=== PATIENT | male | born 1945 | race Caucasian/White ===

== ENCOUNTER 2022-05-13 09:06 | Inpatient (IN) ==
[2022-05-13 09:39] LABS: iSTAT Creatinine 1.6 mg/dl (0.6-1.3); iSTAT Hemoglobin 9.2 g/dl (14.0-18.0); iSTAT Ionized Calcium 1.19 mmol/l (1.12-1.32)
[2022-05-13] MEDS ORDERED: SODIUM CHLORIDE 0.9% 500 ML IV SCH (10:00)
[2022-05-13] MEDS ORDERED: SODIUM CHLORIDE 0.9% 1000ML 1,000 ML IV SCH (10:00)
--- NOTE | 2022-05-13 10:04 | Emergency Department Note ---
Impression & Plan Acute hypotension, Dizziness, Acute confusion, Acute diverticulitis of intestine ED Provider Note INFORMANT: Patient and EMS ED PROVIDER(S): Kareem Montemayor MD CHIEF COMPLAINT: dizziness PLAN: Disposition: Admitted Condition: Good Outpatient prescription management: none Referral: None MEDICAL DECISION MAKING: Patient presented because of dizziness. He was hypotensive in the outpatient setting. He responded well to fluids. He did have some confusion. A CT scan of the head as well as the abdomen pelvis was ordered that he had tenderness on the physical examination in the lower quadrant. Patient had a negative head CT. His ECG showed a stable bradycardia. His CBC and chemistry panel were unremarkable except for mild anemia. Patient had a negative lactate and troponin. COVID testing negative. CT of the abdomen pelvis does reveal diverticulitis. Because of this the patient had blood cultures obtained. He was reassessed. The patient was given IV Unasyn. His hypotension had resolved. Given the low blood pressure and findings on physical and CT imaging I discus sed further treatment in the hospital. Patient was in agreement. Consultation was made with the [facility] service. Patient was evaluated in the ER and admitted for further management. Triage Nursing notes reviewed and agree them. Vital Signs: reviewed and remarkable for no significant abnormalities Differential diagnosis: Infection, dehydration, metabolic abnormality, hypo/hyperglycemia, electrolyte disturbance, anemia, hypoxia, cardiac sources, intracerebral event, toxicologic, neurologic, as well as other pathologies. Diagnostics interpreted by me: ECG: Twelve-lead ECG reveals sinus bradycardia with first-degree AV block at [address] elevation or depression. There are Q waves present. No PACs or PVCs. Normal QRS duration. Cardiac Monitoring: Cardiac monitoring ordered by me: The patient was placed on continuous cardiac monitoring and observed. It revealed a n sinus bradycardic rhythm at 54 beats per minute without ectopy or evidence of dysrhythmia. Imaging studies: Chest x-ray. Findings: A chest x-ray was performed and revealed no pneumothorax, effusion, infiltrate, pulmonary edema, free air under the diaphragm, or wide mediastinum. Impression: No acute disease. Head CT and CT scan of the abdomen pelvis as above. HPI: The patient is a 77year old man who presents to the Emergency Room with complaints of dizziness. This started abruptly at a preop visit for colonoscopy at the [facility] and is improved. Patient states that he was feeling well. Reports were that he became dizzy and had confusion. His blood pressure was noted to be 66/42. BSG was 127. EMS was summoned. Patient did receive IV fluids. The patient also notes the following associated symptoms, difficulty sleeping last night.. The patient has taken no medication for relieving factors. Current pain is rated as 0/10. Pt denies LOC, headache, fevers, chills, diaphoresis, visual changes, neck pain, chest pain, breathing difficulties, nausea, vomiting, abdominal pain, back pain, melena, hematochezia, urinary symptoms, numbness, focal weakness, lymphadenopathy, rash, or other complaints. ROS: See above HPI for pertinent positives & negatives. A total of 10 systems reviewed and were otherwise negative. PAST MEDICAL HISTORY:See Below , diabetes, hypertension PAST SURGICAL HISTORY:See Below, FAMILY HISTORY:See Below SOCIAL HISTORY:See Below, retired HOME MEDICATIONS:See Below ALLERGIES:See Below VITALS:See Below PHYSICAL EXAMINATION: GENERAL: Awake, alert, tired-appearing, in no distress HENT: Normocephalic, atraumatic. Oropharynx unremarkable. EYES: Pale conjunctiva. Sclera non-icteric. NECK: Inspection normal. Non-tender. Supple. No nuchal rigidity. FROM. No masses. RESPIRATORY: Clear to auscultation. No wheezes. No rales. Normal respiratory effort. CARDIAC: Normal rate. Normal rhythm. No murmurs. No rubs. Extremities warm and well perfused. Pulses equal. No JVD. GI: Soft, non-distended. No tenderness to palpation. No rebound or guarding. No masses. RECTAL: Deferred. MUSCULOSKELETAL: Atraumatic. Chest examination reveals no tenderness. The back is symmetrical on inspection without obvious abnormality. There is no CVA tenderness to palpation. No joint edema. LOWER EXTREMITIES: Calves are equal size bilaterally and non-tender. No edema. No discoloration. NEURO: Speech is soft. Patient answers questions appropriately. Normal sensorium. No sensory or motor deficits noted. SKIN: No rash or jaundice noted. Kareem Montemayor MD Past Med/Surg History Medical History (Updated 05/13/22 @ 13:56 by Suki Lopez PA-C) Arthritis NECK, LIMITED ROM SIDE TO SIDE MOVEMENT CKD (chronic kidney disease), stage III Dementia Diabetes mellitus, type II, insulin dependent HLD (hyperlipidemia) HTN (hypertension) Poor historian Surgical History History of colonoscopy History of colonoscopy with polypectomy History of right cataract surgery History of surgery L HEEL , SPLINTER REMOVED Family History Other Heart disease Social History Smoking Status: Never smoker Second Hand Exposure: No; Hx Alcohol Use: Yes Hx Substance Use: No Preferred Language: Pashto Communication Ability: Effective Rubber Engraver Required: No Beliefs That Will Affect Care: None Current Living Situation: Alone Other Information That Helps Us Care for You: No Feels Safe at Home: Yes Safety Concerns: Feels Safe At This Time Assistive Devices: Glasses Allergies Allergies Allergy/AdvReac Type Severity Reaction Status Date / Time No Known Drug Allergies Allergy Unknown Verified 01/07/20 14:34 Home Meds Home Medications Medication Instructions Recorded Confirmed aspirin 81 mg tablet,delayed 81 mg PO QAM 10/16/19 05/13/22 release (Aspir-) atorvastatin 80 mg tablet 80 mg PO HS 10/16/19 05/13/22 losartan 100 mg tablet 100 mg PO QAM 10/16/19 05/13/22 omega 3 350 mg-dha 235 mg-epa 90 2 cap PO QAM 10/16/19 05/13/22 mg-fish oil 597 mg capsule,delay rel (Swiss-3) donepezil 5 mg tablet 10 mg PO QAM 01/07/20 05/13/22 gabapentin 300 mg capsule 600 mg PO TID 01/07/20 05/13/22 insulin aspart U-100 100 unit/mL 12 unit SUBCUT BIDM 01/07/20 05/13/22 subcutaneous solution (Novolog U-100 Insulin aspart) insulin glargine 100 unit/mL (3 25 unit SUBCUT BID 01/07/20 05/13/22 mL) subcutaneous pen (Lantus Solostar U-100 Insulin) albuterol 90 mcg/actuation aerosol 90 mcg INHALATION Q6H PRN 05/13/22 05/13/22 inhaler amitriptyline 50 mg tablet 100 mg PO HS PRN 05/13/22 05/13/22 amlodipine 5 mg tablet 5 mg PO DAILY 05/13/22 05/13/22 cholecalciferol (vitamin D3) 125 125 mcg PO DAILY 05/13/22 05/13/22 mcg (5,000 unit) capsule docusate sodium 100 mg capsule 100 mg PO BID PRN 05/13/22 05/13/22 folic acid 1 mg tablet 1 mg PO DAILY 05/13/22 05/13/22 Results & Data (ED) Vital Signs Vital Signs - 24 hr 05/13/22 09:13 05/13/22 09:15 05/13/22 09:18 Temperature 36.5 C Temperature Source Oral Pulse Rate - Lying Pulse Rate - Sitting Pulse Rate - Standing Pulse Rate 54 L 56 L 54 L Pulse Rate [Finger] Pulse Rate from SpO2 Sensor 54 L 54 L Respiratory Rate 16 16 20 Blood Pressure - Lying Blood Pressure - Sitting Blood Pressure- Standing Blood Pressure 104/64 104/64 Blood Pressure [Left Arm] Blood Pressure Mean 77 77 Blood Pressure Mean [Left Arm] Pulse Oximetry 97 96 93 Oxygen Delivery Method Room Air Sepsis Recent Fever Within 48 Hours No Sepsis New/Unexplained Change in Mental Status No Sepsis Action Taken by Nursing No Action Required 05/13/22 09:30 05/13/22 09:45 05/13/22 09:49 Temperature Temperature Source Pulse Rate - Lying Pulse Rate - Sitting Pulse Rate - Standing Pulse Rate 54 L 56 L 54 L Pulse Rate [Finger] Pulse Rate from SpO2 Sensor 54 L 56 L 53 L Respiratory Rate 10 L 16 14 Blood Pressure - Lying Blood Pressure - Sitting Blood Pressure- Standing Blood Pressure 115/63 106/68 Blood Pressure [Left Arm] Blood Pressure Mean 80 80 Blood Pressure Mean [Left Arm] Pulse Oximetry 95 97 98 Oxygen Delivery Method Room Air Sepsis Recent Fever Within 48 Hours Sepsis New/Unexplained Change in Mental Status Sepsis Action Taken by Nursing 05/13/22 09:59 05/13/22 10:00 05/13/22 10:10 Temperature Temperature Source Pulse Rate - Lying Pulse Rate - Sitting Pulse Rate - Standing Pulse Rate 57 L 73 Pulse Rate [Finger] Pulse Rate from SpO2 Sensor 57 L Respiratory Rate 4 L 18 Blood Pressure - Lying Blood Pressure - Sitting Blood Pressure- Standing Blood Pressure 129/72 Blood Pressure [Left Arm] Blood Pressure Mean 91 Blood Pressure Mean [Left Arm] Pulse Oximetry 99 Oxygen Delivery Method Sepsis Recent Fever Within 48 Hours Sepsis New/Unexplained Change in Mental Status Sepsis Action Taken by Nursing 05/13/22 10:15 05/13/22 10:20 05/13/22 10:22 Temperature Temperature Source Pulse Rate - Lying 54 L Pulse Rate - Sitting 61 Pulse Rate - Standing 64 Pulse Rate 58 L 58 L 64 Pulse Rate [Finger] Pulse Rate from SpO2 Sensor 57 L 64 Respiratory Rate 18 0 L 18 Blood Pressure - Lying 116/67 Blood Pressure - Sitting 112/63 Blood Pressure- Standing 117/68 Blood Pressure 116/67 117/68 Blood Pressure [Left Arm] Blood Pressure Mean 83 84 Blood Pressure Mean [Left Arm] Pulse Oximetry 95 99 Oxygen Delivery Method Sepsis Recent Fever Within 48 Hours Sepsis New/Unexplained Change in Mental Status Sepsis Action Taken by Nursing 05/13/22 10:23 05/13/22 10:41 05/13/22 10:45 Temperature Temperature Source Pulse Rate - Lying Pulse Rate - Sitting Pulse Rate - Standing Pulse Rate Pulse Rate [Finger] 60 Pulse Rate from SpO2 Sensor 56 L 59 L Respiratory Rate 16 Blood Pressure - Lying Blood Pressure - Sitting Blood Pressure- Standing Blood Pressure Blood Pressure [Left Arm] 117/68 Blood Pressure Mean Blood Pressure Mean [Left Arm] 84 Pulse Oximetry 97 95 96 Oxygen Delivery Method Room Air Sepsis Recent Fever Within 48 Hours Sepsis New/Unexplained Change in Mental Status Sepsis Action Taken by Nursing 05/13/22 11:00 05/13/22 11:15 05/13/22 11:20 Temperature Temperature Source Pulse Rate - Lying Pulse Rate - Sitting Pulse Rate - Standing Pulse Rate 0 L 59 L 63 Pulse Rate [Finger] Pulse Rate from SpO2 Sensor 56 L 59 L 62 Respiratory Rate 10 L 13 Blood Pressure - Lying Blood Pressure - Sitting Blood Pressure- Standing Blood Pressure 128/82 Blood Pressure [Left Arm] Blood Pressure Mean 97 Blood Pressure Mean [Left Arm] Pulse Oximetry 97 99 98 Oxygen Delivery Method Sepsis Recent Fever Within 48 Hours Sepsis New/Unexplained Change in Mental Status Sepsis Action Taken by Nursing 05/13/22 11:30 05/13/22 11:40 05/13/22 11:56 Temperature Temperature Source Pulse Rate - Lying Pulse Rate - Sitting Pulse Rate - Standing Pulse Rate 59 L 58 L Pulse Rate [Finger] Pulse Rate from SpO2 Sensor 58 L 59 L 62 Respiratory Rate 11 L 10 L Blood Pressure - Lying Blood Pressure - Sitting Blood Pressure- Standing Blood Pressure 151/83 H Blood Pressure [Left Arm] Blood Pressure Mean 105 Blood Pressure Mean [Left Arm] Pulse Oximetry 94 97 97 Oxygen Delivery Method Sepsis Recent Fever Within 48 Hours Sepsis New/Unexplained Change in Mental Status Sepsis Action Taken by Nursing 05/13/22 12:03 05/13/22 12:10 05/13/22 12:15 Temperature Temperature Source Pulse Rate - Lying Pulse Rate - Sitting Pulse Rate - Standing Pulse Rate 63 69 Pulse Rate [Finger] Pulse Rate from SpO2 Sensor 64 68 Respiratory Rate 13 14 Blood Pressure - Lying Blood Pressure - Sitting Blood Pressure- Standing Blood Pressure Blood Pressure [Left Arm] Blood Pressure Mean Blood Pressure Mean [Left Arm] Pulse Oximetry 99 89 L Oxygen Delivery Method Sepsis Recent Fever Within 48 Hours Sepsis New/Unexplained Change in Mental Status Sepsis Action Taken by Nursing 05/13/22 12:30 Temperature Temperature Source Pulse Rate - Lying Pulse Rate - Sitting Pulse Rate - Standing Pulse Rate 66 Pulse Rate [Finger] Pulse Rate from SpO2 Sensor 65 Respiratory Rate 15 Blood Pressure - Lying Blood Pressure - Sitting Blood Pressure- Standing Blood Pressure 139/88 Blood Pressure [Left Arm] Blood Pressure Mean 105 Blood Pressure Mean [Left Arm] Pulse Oximetry 94 Oxygen Delivery Method Sepsis Recent Fever Within 48 Hours Sepsis New/Unexplained Change in Mental Status Sepsis Action Taken by Nursing Laboratory Data Result diagrams: 05/13/22 09:18 05/13/22 09:18 Lab Results 05/13/22 05/13/22 05/13/22 Range/Units 09:18 09:18 09:18 WBC 6.28 (4.8-10.8) K/uL RBC 3.10 L (4.7-6.1) M/uL Hgb 10.0 L (14.0-18.0) g/dL POC Hgb (14.0-18.0) g/dl Hct 30.5 L (42-52) % POC Hct (42-52) % MCV 98.4 (80-100) fL MCH 32.3 (25-34) pg MCHC 32.8 (32-36) g/dL RDW Std Deviation 48.8 H (36.4-46.3) fL RDW Coeff of Gabriella 13.6 (11.5-14.5) % Plt Count 337 (130-400) K/uL MPV 10.0 (7.4-10.4) fL Immature Gran % (Auto) 0.2 % Neut % (Auto) 53.7 % Lymph % (Auto) 32.8 % [place] % (Auto) 8.4 % Eos % (Auto) 3.8 % Baso % (Auto) 1.1 % Neut # (Auto) 3.37 (1.4-6.5) K/uL Lymph # (Auto) 2.06 (1.2-3.4) K/uL [place] # (Auto) 0.53 (0.11-0.59) K/uL Eos # (Auto) 0.24 (0-0.5) K/uL Baso # (Auto) 0.07 (0-0.2) K/uL Immature Gran # (Auto) 0.01 (0.00-0.02) K/uL POC Sodium (135-144) mmol/L Sodium 140 (136-145) mmol/L POC Potassium (3.3-5.0) mmol/L Potassium 4.0 (3.5-5.1) mmol/L POC Chloride (101-112) mmol/L Chloride 108 H (98-107) mmol/L Carbon Dioxide 27 (21-32) mmol/L POC Total CO2 (24-31) mmol/L Anion Gap 5 (3-11) POC Anion Gap (16-25) mmol/L POC BUN (7-18) mg/dl BUN 26 H (6-23) mg/dl Creatinine 1.57 H (0.6-1.4) mg/dl POC Creatinine (0.6-1.3) mg/dl Est Cr Clr Drug Dosing 43.9 ml/min Est GFR ( Amer) 48.9 ml/min Est GFR (Non-Af Amer) 42.2 ml/min BUN/Creatinine Ratio 16.6 (10-20) Glucose 114 H (70-99(Fasting)) mg/dl POC Glucose (other) (70-99) mg/dl Lactate (0.4-2.0) mmol/L Calcium 8.6 (8.5-10.1) mg/dl POC Ioniz Calcium Jessica (1.12-1.32) mmol/l Magnesium 1.7 (1.7-2.4) mg/dl Total Bilirubin 1.0 (0.2-1.0) mg/dl AST 11 L (13-39) U/L ALT 16 (7-52) U/L Alkaline Phosphatase 92 (34-104) U/L Troponin I High Sens 4.5 (0-20) pg/ml Total Protein 6.0 (6.0-8.3) gm/dl Albumin 3.5 (3.4-5.0) gm/dl Globulin 2.5 (2.5-4.0) gm/dl Albumin/Globulin Ratio 1.4 (0.9-2) TSH 5.352 H (0.300-4.500) uIu/ml Free T4 0.74 (0.61-1.60) ng/dl SARS-CoV-2, RNA, NAAT (NEGATIVE) 05/13/22 05/13/22 05/13/22 Range/Units 09:26 11:49 11:49 WBC (4.8-10.8) K/uL RBC (4.7-6.1) M/uL Hgb (14.0-18.0) g/dL POC Hgb 9.2 L (14.0-18.0) g/dl Hct (42-52) % POC Hct 27 L (42-52) % MCV (80-100) fL MCH (25-34) pg MCHC (32-36) g/dL RDW Std Deviation (36.4-46.3) fL RDW Coeff of Gabriella (11.5-14.5) % Plt Count (130-400) K/uL MPV (7.4-10.4) fL Immature Gran % (Auto) % Neut % (Auto) % Lymph % (Auto) % [place] % (Auto) % Eos % (Auto) % Baso % (Auto) % Neut # (Auto) (1.4-6.5) K/uL Lymph # (Auto) (1.2-3.4) K/uL [place] # (Auto) (0.11-0.59) K/uL Eos # (Auto) (0-0.5) K/uL Baso # (Auto) (0-0.2) K/uL Immature Gran # (Auto) (0.00-0.02) K/uL POC Sodium 142 (135-144) mmol/L Sodium (136-145) mmol/L POC Potassium 4.0 (3.3-5.0) mmol/L Potassium (3.5-5.1) mmol/L POC Chloride 105 (101-112) mmol/L Chloride (98-107) mmol/L Carbon Dioxide (21-32) mmol/L POC Total CO2 25 (24-31) mmol/L Anion Gap (3-11) POC Anion Gap 17.0 (16-25) mmol/L POC BUN 24 H (7-18) mg/dl BUN (6-23) mg/dl Creatinine (0.6-1.4) mg/dl POC Creatinine 1.6 H (0.6-1.3) mg/dl Est Cr Clr Drug Dosing ml/min Est GFR ( Amer) ml/min Est GFR (Non-Af Amer) ml/min BUN/Creatinine Ratio (10-20) Glucose (70-99(Fasting)) mg/dl POC Glucose (other) 114 H (70-99) mg/dl Lactate 1.4 (0.4-2.0) mmol/L Calcium (8.5-10.1) mg/dl POC Ioniz Calcium Jessica 1.19 (1.12-1.32) mmol/l Magnesium (1.7-2.4) mg/dl Total Bilirubin (0.2-1.0) mg/dl AST (13-39) U/L ALT (7-52) U/L Alkaline Phosphatase (34-104) U/L Troponin I High Sens (0-20) pg/ml Total Protein (6.0-8.3) gm/dl Albumin (3.4-5.0) gm/dl Globulin (2.5-4.0) gm/dl Albumin/Globulin Ratio (0.9-2) TSH (0.300-4.500) uIu/ml Free T4 (0.61-1.60) ng/dl SARS-CoV-2, RNA, NAAT NEGATIVE (NEGATIVE) Administered Medications Sodium Chloride (Nss 1000ml) 1,000 mls @ 125 mls/hr IV .Q8H NATE Stop: 05/13/22 17:59 Last Admin: 05/13/22 11:09 Dose: 125 mls/hr Documented by: [id number] Discontinued Medications Sodium Chloride (Nss) 500 mls @ 999 mls/hr IV .Q31M NATE Stop: 05/13/22 10:30 Last Infusion: 05/13/22 11:09 Dose: 0 mls/hr Documented by: [id number] Admin: 05/13/22 10:25 Dose: 999 mls/hr Documented by: [id number] Ampicillin Sodium/Sulbactam Sodium 3,000 mg/ Sodium Chloride 108 mls @ 200 mls/hr IV NOW STA; Protocol Stop: 05/13/22 12:10 Last Admin: 05/13/22 12:32 Dose: 200 mls/hr Documented by: [id number] Imaging Data Radiologist's Impression: Chest X-Ray 05/13/22 09:53 XR chest 1V portable CLINICAL HISTORY: weakness TECHNIQUE: Single frontal radiograph of the chest was obtained. Comparison: Comparison is made to chest radiograph 12/18/2019 FINDINGS: No lines and tubes are seen. Cardiomegaly is noted. The lungs are clear. No evidence of pleural effusion or pneumothorax. IMPRESSION: Stable cardiomegaly without acute abnormality. ACT 112: Negative or not required by law. Electronically signed by: Dillon Fonseca M.D. 05/13/2022 10:[address] 05/13/22 09:53 CT SCAN OF THE BRAIN WITHOUT IV CONTRAST CLINICAL HISTORY: Dizziness. COMPARISON STUDY: No priors. TECHNIQUE: Unenhanced axial CT scan of the brain is performed from the vertex to the skull base. A dose lowering technique was utilized adhering to the principles of ALARA. CT DOSE: 614.27 mGy.cm FINDINGS: Brain parenchyma: There is age-related involutional change noting minimal subcortical and periventricular microangiopathic disease. There is no hemorrhag e, mass effect, or evidence of acute territorial ischemia by CT criteria. A chronic lacunar infarct is noted in the right thalamus. Martinez-white matter differentiation is preserved. No extra-axial fluid collection is seen. Ventricles, sulci, cisterns: Prominent secondary to involutional change. Intracranial vasculature: There is atherosclerotic calcification of the cavernous carotid and vertebral arteries. Calvarium: Unremarkable. Sinuses and mastoids: The visualized paranasal sinuses are clear. There is trace left mastoid effusion. The right mastoid air cells are well pneumatized. Orbits: The bony orbits are grossly intact. There are bilateral ocular lens implants. IMPRESSION: There is no hemorrhage, mass effect, or evidence of acute territorial ischemia by CT criteria. ACT 112: Negative or not required by law. Electronically signed by: Chano Klein M.D. 05/13/2022 10:32 AM Abdomen/Pelvis CT 05/13/22 10:09 CT abd pelvis wo con CLINICAL HISTORY: LLQ abd pain, hypotension TECHNIQUE: Helical axial images of the abdomen and pelvis were obtained. Automated dose lowering techniques and/or adjustment according to patient size were utilized for this exam. This exam was performed without intravenous contrast. CT DOSE: 459.78 mGy.cm COMPARISON: None available at the time of this dictation. FINDINGS: Lower chest: No acute abnormality Liver: Unremarkable. No focal lesions are seen. Gallbladder and biliary tree: Cholelithiasis is seen without evidence of cholecystitis. No intra- or extrahepatic biliary ductal dilation. Pancreas: Unremarkable, no focal lesions. Spleen: Unremarkable. Adrenals: Unremarkable. Kidneys and ureters: Perinephric stranding is noted bilaterally. Bladder: Unremarkable. Reproductive organs: Unremarkable. Bowel: Since of diverticula are seen. There is bowel wall thickening and vascular prominence in the sigmoid colon with a tiny amount of surrounding fat stranding. No perforation or abscess is seen. Lymph nodes Retroperitoneal: Unremarkable. Mesenteric: Unremarkable. Pelvic: Unremarkable. Peritoneum: Minimal fat stranding is seen about the sigmoid colon. Vessels: Atherosclerotic calcifications are seen. Abdominal wall: Bilateral fat-containing inguinal hernias are seen. Bones: Degenerative changes in the visualized spine. IMPRESSION: Findings are compatible with acute diverticulitis without evidence of perforation or abscess. ACT 112: Negative or not required by law. Electronically signed by: Dillon Fonseca M.D. 05/13/2022 11:08 AM Discharge Plan Visit Data Chief Complaint: Dizziness Stated Complaint: Dizziness ED Provider: Kareem Montemayor Discharge Problem: Acute hypotension, Dizziness, Acute confusion, Acute diverticulitis of intestine Patient Disposition: Admitted As Inpatient Discharge Instructions Interventions: ED Discharge Assessment Last Done: 05/13/22 13:36
--- NOTE | 2022-05-13 10:29 | Electrocardiogram Report ---
Test Reason : Blood Pressure : / mmHG Vent. Rate : 052 BPM Atrial Rate : 052 BPM P-R Int : 240 ms QRS Dur : 102 ms QT Int : 438 ms P-R-T Axes : 047 039 048 degrees QTc Int : 407 ms Sinus bradycardia with 1st degree A-V block Possible Old Inferior infarct When compared with ECG of 07-JAN-2020 12:47, Nonspecific T wave abnormality Lateral leads no longer present Confirmed by Julian Mark ([id number]) on 05/13/2022 10:29:30 AM Referred By: Confirmed By:Julian Mark
--- NOTE | 2022-05-13 10:34 | CT Scan Report ---
CT SCAN OF THE BRAIN WITHOUT IV CONTRAST CLINICAL HISTORY: Dizziness. COMPARISON STUDY: No priors. TECHNIQUE: Unenhanced axial CT scan of the brain is performed from the vertex to the skull base. A do se lowering technique was utilized adhering to the principles of ALARA. CT DOSE: 614.27 mGy.cm FINDINGS: Brain parenchyma: There is age-related involutional change noting minimal subcortical and periventric ular microangiopathic disease. There is no hemorrhage, mass effect, or evidence of acute territorial ischemia by CT criteria. A chronic lacunar infarct is noted in the right thalamus. Martinez-white matter differentiation is preserved. No extra-axial fluid collection is seen. Ventricles, sulci, cisterns: Prominent secondary to involutional change. Intracranial vasculature: There is atherosclerotic calcification of the cavernous carotid and vertebr al arteries. Calvarium: Unremarkable. Sinuses and mastoids: The visualized paranasal sinuses are clear. There is trace left mastoid effusio n. The right mastoid air cells are well pneumatized. Orbits: The bony orbits are grossly intact. There are bilateral ocular lens implants. IMPRESSION: There is no hemorrhage, mass effect, or evidence of acute territorial ischemia by CT aruna payne. ACT 112: Negative or not required by law. Electronically signed by: Chano Klein M.D. 05/13/2022 10:32 AM
--- NOTE | 2022-05-13 10:43 | XRay Report ---
XR chest 1V portable CLINICAL HISTORY: weakness TECHNIQUE: Single frontal radiograph of the chest was obtained. Comparison: Comparison is made to chest radiograph 12/18/2019 FINDINGS: No lines and tubes are seen. Cardiomegaly is noted. The lungs are clear. No evidence of pleural effus ion or pneumothorax. IMPRESSION: Stable cardiomegaly without acute abnormality. ACT 112: Negative or not required by law. Electronically signed by: Dillon Fonseca M.D. 05/13/2022 10:42 AM
[2022-05-13 10:44] LABS: Basophils # (auto) 0.07 K/uL (0-0.2); Basophils % (auto) 1.1 %; Eosinophils # (auto) 0.24 K/uL (0-0.5); Eosinophils % (auto) 3.8 %; Hematocrit (blood only) 30.5 % (42-52); Immature Granulocytes # (auto) 0.01 K/uL (0.00-0.02); Immature Granulocytes % (auto) 0.2 %; Lymphocytes # (auto) 2.06 K/uL (1.2-3.4); Lymphocytes % (auto) 32.8 %; Mean Corpuscular Hemoglobin 32.3 pg (25-34); Mean Corpuscular Hgb Conc 32.8 g/dL (32-36); Mean Corpuscular Volume 98.4 fL (80-100); Monocytes # (auto) 0.53 K/uL (0.11-0.59); Monocytes % (auto) 8.4 %; Neutrophils # (auto) 3.37 K/uL (1.4-6.5); Neutrophils % (auto) 53.7 %; Platelet Count 337 K/uL (130-400); RDW Coefficient of Variation 13.6 % (11.5-14.5); RDW Standard Deviation 48.8 fL (36.4-46.3); White Blood Count 6.28 K/uL (4.8-10.8)
[2022-05-13 10:52] LABS: Troponin I High Sensitivity 4.5 pg/ml (0-20)
[2022-05-13 10:55] LABS: Albumin Globulin Ratio 1.4 (0.9-2); Albumin Level 3.5 gm/dl (3.4-5.0); BUN Creatinine Ratio 16.6 (10-20); Calcium 8.6 mg/dl (8.5-10.1); Creatinine Clr Calc Pharmacy 43.9 ml/min; Est GFR (African American) 48.9 ml/min; Est GFR (Non-African American) 42.2 ml/min; Globulin 2.5 gm/dl (2.5-4.0); Magnesium 1.7 mg/dl (1.7-2.4)
[2022-05-13 11:00] LABS: Thyroid Stimulating Hormone 5.352 uIu/ml (0.300-4.500)
--- NOTE | 2022-05-13 11:09 | CT Scan Report ---
CT abd pelvis wo con CLINICAL HISTORY: LLQ abd pain, hypotension TECHNIQUE: Helical axial images of the abdomen and pelvis were obtained. Automated dose lowering tech niques and/or adjustment according to patient size were utilized for this exam. This exam was perfor med without intravenous contrast. CT DOSE: 459.78 mGy.cm COMPARISON: None available at the time of this dictation. FINDINGS: Lower chest: No acute abnormality Liver: Unremarkable. No focal lesions are seen. Gallbladder and biliary tree: Cholelithiasis is seen without evidence of cholecystitis. No intra- or extrahepatic biliary ductal dilation. Pancreas: Unremarkable, no focal lesions. Spleen: Unremarkable. Adrenals: Unremarkable. Kidneys and ureters: Perinephric stranding is noted bilaterally. Bladder: Unremarkable. Reproductive organs: Unremarkable. Bowel: Since of diverticula are seen. There is bowel wall thickening and vascular prominence in the s igmoid colon with a tiny amount of surrounding fat stranding. No perforation or abscess is seen. Lymph nodes Retroperitoneal: Unremarkable. Mesenteric: Unremarkable. Pelvic: Unremarkable. Peritoneum: Minimal fat stranding is seen about the sigmoid colon. Vessels: Atherosclerotic calcifications are seen. Abdominal wall: Bilateral fat-containing inguinal hernias are seen. Bones: Degenerative changes in the visualized spine. IMPRESSION: Findings are compatible with acute diverticulitis without evidence of perforation or abscess. ACT 112: Negative or not required by law. Electronically signed by: Dillon Fonseca M.D. 05/13/2022 11:08 AM
[2022-05-13 11:37] LABS: T4 Free Thyroxine 0.74 ng/dl (0.61-1.60)
[2022-05-13] MEDS ORDERED: AMPICILLIN/SULBACTAM SOD 3,000 MG in 0.9 % SODIUM CHLORIDE 100 ML IV STA (11:38)
--- NOTE | 2022-05-13 12:20 | History & Physical Report ---
Date of Service May 13, 2022 Assessment & Plan (1) Acute hypotension: (2) Dizziness: Plan: This is a 77yo M with a PMH of DM II, HTN, HLD, CKD III, dementia and other medical problems listed below who presents with transient lightheadedness and lower abdominal pain and was found to have acute diverticulitis. [facility] and [facility] that have since resolved with IV fluids VSS, has mild dementia at baseline CT head WNL Concern for improper medication use; lives alone, has all belongings in car including meds while moving into new apartment. May benefit from services Monitor BP, fall precautions, PT/OT evaluation (3) Acute diverticulitis of intestine: Plan: Intermittent mild lower abdominal pain, denies bleeding. Hgb 10, WBC WNL, lactate WNL CT abd/pelvis with acute diverticulitis without evidence of perforation or abscess Liquid diet, cipro and flagyl, stool culture, routine GI consult (4) Diabetes mellitus, type II, insulin dependent: Plan: Most recent a1c unknown, will add to AM labs. Unclear on insulin dosing, recent BSG readings have been low per patient. Glycemic consult to optimize regimen, nurse educator. BSG AC HS (5) CKD (chronic kidney disease), stage III: Plan: Per outpatient labwork, baseline Cr ~1.7. Monitor with daily BMP (6) HTN (hypertension): Plan: Normotensive since arrival. Continue amlodipine, losartan (7) Dementia: Plan: A&O to person and place on admission. Continue donepezil. Case mgmt help appreciated since patient lives alone, is in process of moving apartments (8) HLD (hyperlipidemia): Plan: Continue statin DVT Ppx: SQ heparin Code status: FULL PCP: [place] [facility] Dispo: Admitted to med/surg Patient seen in collaboration with . Please see addendum. History of Present Illness Chief Complaint: Dizziness, hypotension, lower abdominal pain Primary Care Provider: NO PCP This is a 77yo M with a PMH of DM II, HTN, HLD, CKD III, dementia and other medical problems listed below who presents with transient lightheadedness and lower abdominal pain. Patient was [facility] [place] when he was noted to be lightheaded and more confused than baseline with a reported systolic blood pressure in the 60s. Was sent to ED for further evaluation, where he was noted to have improved BP of 104/64. Dizziness and confusion have improved since arrival and IV fluids. Does note intermittent lower abdominal pain that is mild in nature and described as cramping. Did have some loose stool with colonoscopy prep, per patient although he is a poor historian. No longer constipated. Denies any fever, chills, headache, chest pain, shortness of breath, nausea, vomiting, dysuria, blood in stool. No focal weakness. Patient lives alone and is in the process of moving from 1 apartment to another. Currently has most of belongings including [employer] and car. Has mild dementia but is currently alert and oriented to person and place. Allergies Allergy/AdvReac Type Severity Reaction Status Date / Time No Known Drug Allergies Allergy Unknown Verified 01/07/20 14:34 Home Medications Medication Instructions Recorded Confirmed Type aspirin 81 mg tablet,delayed 81 mg PO QAM 10/16/19 05/13/22 History release (Aspir-) atorvastatin 80 mg tablet 80 mg PO HS 10/16/19 05/13/22 History losartan 100 mg tablet 100 mg PO QAM 10/16/19 05/13/22 History omega 3 350 mg-dha 235 mg-epa 90 2 cap PO QAM 10/16/19 05/13/22 History mg-fish oil 597 mg capsule,delay rel ([place]-3) donepezil 5 mg tablet 10 mg PO QAM 01/07/20 05/13/22 History gabapentin 300 mg capsule 600 mg PO TID 01/07/20 05/13/22 History insulin aspart U-100 100 unit/mL 12 unit SUBCUT BIDM 01/07/20 05/13/22 History subcutaneous solution (Novolog U-100 Insulin aspart) insulin glargine 100 unit/mL (3 25 unit SUBCUT BID 01/07/20 05/13/22 History mL) subcutaneous pen (Lantus Solostar U-100 Insulin) albuterol 90 mcg/actuation aerosol 90 mcg INHALATION Q6H PRN 05/13/22 05/13/22 History inhaler amitriptyline 50 mg tablet 100 mg PO HS PRN 05/13/22 05/13/22 History amlodipine 5 mg tablet 5 mg PO DAILY 05/13/22 05/13/22 History cholecalciferol (vitamin D3) 125 125 mcg PO DAILY 05/13/22 05/13/22 History mcg (5,000 unit) capsule docusate sodium 100 mg capsule 100 mg PO BID PRN 05/13/22 05/13/22 History folic acid 1 mg tablet 1 mg PO DAILY 05/13/22 05/13/22 History Past Med/Surg History Medical History (Updated 05/13/22 @ 13:56 by Suki Lopez PA-C) Arthritis NECK, LIMITED ROM SIDE TO SIDE MOVEMENT CKD (chronic kidney disease), stage III Dementia Diabetes mellitus, type II, insulin dependent HLD (hyperlipidemia) HTN (hypertension) Poor historian Surgical History History of colonoscopy History of colonoscopy with polypectomy History of right cataract surgery History of surgery L HEEL , SPLINTER REMOVED Family History Other Heart disease Social History Smoking Status: Never smoker Second Hand Exposure: No; Hx Alcohol Use: Yes Hx Substance Use: No Preferred Language: Latvian Communication Ability: Effective Product Communications Manager Required: No Beliefs That Will Affect Care: None Current Living Situation: Alone Other Information That Helps Us Care for You: No Feels Safe at Home: Yes Safety Concerns: Feels Safe At This Time Assistive Devices: Glasses Review of Systems Review of Systems: At least ten systems reviewed and negative except as noted in the HPI. Physical Exam Physical Exam: Please see Dr. Almaguer's addendum for physical exam. Results & Data Results & Data ([facility]) Vital Signs (Past 12 Hours) Vital Signs Temp Pulse Pulse Resp BP BP Pulse Ox 05/13/22 12:10 63 13 05/13/22 12:03 99 05/13/22 11:56 97 05/13/22 11:40 58 L 10 L 97 05/13/22 11:30 59 L 11 L 151/83 H 94 05/13/22 11:20 63 13 98 05/13/22 11:15 59 L 10 L 99 05/13/22 11:00 0 L 128/82 97 05/13/22 10:45 96 05/13/22 10:41 95 05/13/22 10:23 60 16 117/68 97 05/13/22 10:22 64 18 117/68 99 05/13/22 10:20 58 L 0 L 116/67 95 05/13/22 10:15 58 L 18 05/13/22 10:10 73 18 05/13/22 10:00 129/72 05/13/22 09:59 57 L 4 L 99 05/13/22 09:49 54 L 14 106/68 98 05/13/22 09:45 56 L 16 97 05/13/22 09:30 54 L 10 L 115/63 95 05/13/22 09:18 36.5 C 54 L 20 104/64 93 05/13/22 09:15 56 L 16 96 05/13/22 09:13 54 L 16 104/64 97 Laboratory Results Short CBC 05/13/22 Range/Units 09:18 WBC 6.28 (4.8-10.8) K/uL Hgb 10.0 L (14.0-18.0) g/dL Hct 30.5 L (42-52) % Plt Count 337 (130-400) K/uL BMP 05/13/22 09:18 Sodium 140 Potassium 4.0 Chloride 108 H Carbon Dioxide 27 BUN 26 H Creatinine 1.57 H Glucose 114 H Calcium 8.6 Liver Function 05/13/22 Range/Units 09:18 Total Bilirubin 1.0 (0.2-1.0) mg/dl AST 11 L (13-39) U/L ALT 16 (7-52) U/L Alkaline Phosphatase 92 (34-104) U/L Albumin 3.5 (3.4-5.0) gm/dl Diagnostic Findings Chest X-Ray 05/13/22 09:53 XR chest 1V portable CLINICAL HISTORY: weakness TECHNIQUE: Single frontal radiograph of the chest was obtained. Comparison: Comparison is made to chest radiograph 12/18/2019 FINDINGS: No lines and tubes are seen. Cardiomegaly is noted. The lungs are clear. No evidence of pleural effusion or pneumothorax. IMPRESSION: Stable cardiomegaly without acute abnormality. ACT 112: Negative or not required by law. Electronically signed by: Dillon Fonseca M.D. 05/13/2022 10:[address] 05/13/22 09:53 CT SCAN OF THE BRAIN WITHOUT IV CONTRAST CLINICAL HISTORY: Dizziness. COMPARISON STUDY: No priors. TECHNIQUE: Unenhanced axial CT scan of the brain is performed from the vertex to the skull base. A dose lowering technique was utilized adhering to the principles of ALARA. CT DOSE: 614.27 mGy.cm FINDINGS: Brain parenchyma: There is age-related involutional change noting minimal subcortical and periventricular microangiopathic disease. There is no hemorrhage, mass effect, or evidence of acute territorial ischemia by CT criteria. A chronic lacunar infarct is noted in the right thalamus. Martinez-white matter differentiation is preserved. No extra-axial fluid collection is seen. Ventricles, sulci, cisterns: Prominent secondary to involutional change. Intracranial vasculature: There is atherosclerotic calcification of the cavernous carotid and vertebral arteries. Calvarium: Unremarkable. Sinuses and mastoids: The visualized paranasal sinuses are clear. There is trace left mastoid effusion. The right mastoid air cells are well pneumatized. Orbits: The bony orbits are grossly intact. There are bilateral ocular lens implants. IMPRESSION: There is no hemorrhage, mass effect, or evidence of acute territorial ischemia by CT criteria. ACT 112: Negative or not required by law. Electronically signed by: Chano Klein M.D. 05/13/2022 10:32 AM Abdomen/Pelvis CT 05/13/22 10:09 CT abd pelvis wo con CLINICAL HISTORY: LLQ abd pain, hypotension TECHNIQUE: Helical axial images of the abdomen and pelvis were obtained. Automated dose lowering techniques and/or adjustment according to patient size were utilized for this exam. This exam was performed without intravenous contrast. CT DOSE: 459.78 mGy.cm COMPARISON: None available at the time of this dictation. FINDINGS: Lower chest: No acute abnormality Liver: Unremarkable. No focal lesions are seen. Gallbladder and biliary tree: Cholelithiasis is seen without evidence of cholecystitis. No intra- or extrahepatic biliary ductal dilation. Pancreas: Unremarkable, no focal lesions. Spleen: Unremarkable. Adrenals: Unremarkable. Kidneys and ureters: Perinephric stranding is noted bilaterally. Bladder: Unremarkable. Reproductive organs: Unremarkable. Bowel: Since of diverticula are seen. There is bowel wall thickening and v ascular prominence in the sigmoid colon with a tiny amount of surrounding fat stranding. No perforation or abscess is seen. Lymph nodes Retroperitoneal: Unremarkable. Mesenteric: Unremarkable. Pelvic: Unremarkable. Peritoneum: Minimal fat stranding is seen about the sigmoid colon. Vessels: Atherosclerotic calcifications are seen. Abdominal wall: Bilateral fat-containing inguinal hernias are seen. Bones: Degenerative changes in the visualized spine. IMPRESSION: Findings are compatible with acute diverticulitis without evidence of perforation or abscess. ACT 112: Negative or not required by law. Electronically signed by: Dillon Fonseca M.D. 05/13/2022 11:08 AM Supervising Physician Co-Signing Physician Notes Date of Service: May 13, 2022 History and physical exam performed by me 77year old man with h/o DM, HTN, CKD who presents from PCP office where he was noted to be dizzy. Reports some dizziness and feeling faint at the PCPs office. Ascribed this to possibly low blood glucose. Patient is a poor historian. Review of system notable for abdominal pain (patient could not state when it started). Denied nausea, vomiting. Reported some constipation sometime ago but resolving On exam, General: Elderly man in no distress Eyes: PERRL, conjunctivae normal, not pale, anicteric sclerae, EOM intact bilaterally ENMT: External ear and nose normal, oropharynx normal Respiratory: Normal respiratory effort, no respiratory distress, lungs clear to auscultation, no crackles and no wheezes Cardiovascular: RRR S1 S2 Gastrointestinal (Abdomen): Abdomen is not distended, soft, +LLQ tenderness, no guarding, no palpable hepatosplenomegaly, normal bowel sounds Musculoskeletal: No pedal edema Genitourinary: No CVA tenderness Neurologic: Alert and oriented to person, place, day and year, No focal weakness, sensation grossly intact Psychiatric: Euthymic affect Labs notable for hemoglobin of 10, creatinine of 1.57 [was 1.7 on April 14, 2022 per Paperwork that Came with patient from PCPs] Abdominal CT notable for acute diverticulitis without perforation or abscess. Dizziness Acute diverticulitis IV Cipro and Flagyl PT/OT evaluation Monitor blood glucose. Patient unclear about doses of his insulin but states that he takes them at home. Get nurse educator. Agree with plans as detailed by Suki Lopez PA-C
--- NOTE | 2022-05-13 13:22 | Communication Note ---
Date of Service: May 13, 2022 History and physical exam performed by 77year old man with h/o DM, HTN, CKD who presents from PCP office where he was noted to be dizzy. Reports some dizziness and feeling faint at the PCPs office. Ascribed this to possibly low blood glucose. Patient is a poor historian. Review of system notable for abdominal pain (patient could not state when it st arted). Denied nausea, vomiting. Reported some constipation sometime ago but resolving On exam, General: Elderly man in no distress Eyes: PERRL, conjunctivae normal, not pale, anicteric sclerae, EOM intact bilaterally ENMT: External ear and nose normal, oropharynx normal Respiratory: Normal respiratory effort, no respiratory distress, lungs clear to auscultation, no crackles and no wheezes Cardiovascular: RRR S1 S2 Gastrointestinal (Abdomen): Abdomen is not distended, soft, +LLQ tenderness, no guarding, no palpable hepatosplenomegaly, normal bowel sounds Musculoskeletal: No pedal edema Genitourinary: No CVA tenderness Neurologic: Alert and oriented to person, place, day and year, No focal weakness, sensation grossly intact Psychiatric: Euthymic affect Labs notable for hemoglobin of 10, creatinine of 1.57 [was 1.7 on April 14, 2022 per Paperwork that Came with patient from PCPs] Abdominal CT notable for acute diverticulitis without perforation or abscess. Dizziness Acute diverticulitis IV Cipro and Flagyl PT/OT evaluation Monitor blood glucose. Patient unclear about doses of his insulin but states that he takes them at home. Get community nutrition educator. Agree with plans as detailed by Suki Lopez PA-C
[2022-05-13] MEDS ORDERED: ACETAMINOPHEN 325 MG TAB PO PRN (13:38)
[2022-05-13] MEDS ORDERED: ONDANSETRON INJ 2 MG/ML 2 ML VIAL IV PRN (13:38)
[2022-05-13] MEDS ORDERED: DOCUSATE SODIUM 100 MG CAP PO PRN (13:46)
[2022-05-13] MEDS ORDERED: PHARMACY GLYCEMIC MGMT CONSULT PRN (13:47)
[2022-05-13] MEDS ORDERED: ALBUTEROL HFA 8 GM INHALER INH PRN (13:52)
[2022-05-13] MEDS: GABAPENTIN 300 MG CAP PO SCH ×2 (14:31→21:04)
[2022-05-13] MEDS: HEPARIN SOD 5,000 UNIT/0.5 ML VIAL SQ SCH ×3 (14:32→21:08)
--- NOTE | 2022-05-13 14:45 | Gastrointestinal Consultation ---
Date of Consultation May 13, 2022 Assessment & Plan (1) Acute diverticulitis of intestine: This is a 77 y/o male admitted with lightheadedness and abd pain, found to have acute uncomplicated diverticulitis on CT. He is afebrile, has no leukocytosis and a mild anemia. On exam, resting comfortably in bed, abd soft, moderately TTP LLQ. Tolerating liquid diet. - Agree with liquid diet - Advance to low-fiber when tolerated. Ultimately switch to high-fiber to avoid constipation - Agree with Cipro/Flagyl course as per primary team - OP colonoscopy to ensure CT changes have resolved and r/o malignancy once acute issue resolves (approx 6-8 weeks) - he has a scheduled colonoscopy through his regular GI provider in [place] (? [facility]) - I recommend pushing this back 6-8 weeks to let the diverticulitis calm down - GI will sign off, please call with questions over the weekend. Thank you for allowing us to participate in the care of this patient. Please call with any acute changes, questions or concerns. Please see addendum below with additional recommendation from my supervising physician. Supervising Physician Co-Signing Physician Notes I performed a history and physical examination of the patient today, including specifically on physical exam - soft abdomen. I have discussed the patient's management with the advanced practitioner. Please refer to the nurse practitioner's note for the documented findings and plan of care. Uncomplicated acute diverticulitis. Treat with ABx. Colonoscopy as OP in 6 weeks. Recall GI if needed. History of Present Illness Reason for Consultation: acute diverticulitis Requesting Physician: Suki Lopez PA-C Attending Physician: Naima Almaguer MD History of Present Illness This is a 77 y/o male w/ PMHx T2DM, HTN, HLD, CKD III, dementia and others who presented today w/ transient lightheadedness and lower abdominal pain and was found to have acute uncomplicated diverticulitis on noncontrast CTAP. He's being placed on liquid diet, Cipro/Flagyl. We are consulted for the diverticulitis. Pt is oriented to place, time but is a somewhat limited historian. He states typically bowels move well but he developed constipation a few weeks back tx w/ ? Miralax and since then has developed LLQ abd pain. Bowels moved today; passing flatus. Stools can be formed/loose. Denies melena, hematochezia, hematemesis. He tolerated liquid diet today. States he is feeling better. He states he's had several colonoscopies through GI in [place] (? [facility]); has a history of polyps, and is due for next colonoscopy in the middle of May. No colonoscopy records in his chart. He states he is moving to an apartment in [place]; plans to maybe travel the country in his car? Denies fever, chills, CP, SOB; making good urine; has to urinate now. He is afebrile, has no leukocytosis and a mild anemia; normal lactate. EGD 2019 for dysphagia: - Normal esophagus. Dilated. - Normal stomach. - Normal examined duodenum. - No specimens collected. I suspect that dysphagia is related to poor dentition, chewing Allergies Allergy/AdvReac Type Severity Reaction Status Date / Time No Known Drug Allergies Allergy Unknown Verified 01/07/20 14:34 Home Medications Medication Instructions Recorded Confirmed Type aspirin 81 mg tablet,delayed 81 mg PO QAM 10/16/19 05/13/22 History release (Aspir-) atorvastatin 80 mg tablet 80 mg PO HS 10/16/19 05/13/22 History losartan 100 mg tablet 100 mg PO QAM 10/16/19 05/13/22 History omega 3 350 mg-dha 235 mg-epa 90 2 cap PO QAM 10/16/19 05/13/22 History mg-fish oil 597 mg capsule,delay rel ([place]-3) donepezil 5 mg tablet 10 mg PO QAM 01/07/20 05/13/22 History gabapentin 300 mg capsule 600 mg PO TID 01/07/20 05/13/22 History insulin aspart U-100 100 unit/mL 12 unit SUBCUT BIDM 01/07/20 05/13/22 History subcutaneous solution (Novolog U-100 Insulin aspart) insulin glargine 100 unit/mL (3 25 unit SUBCUT BID 01/07/20 05/13/22 History mL) subcutaneous pen (Lantus Solostar U-100 Insulin) albuterol 90 mcg/actuation aerosol 90 mcg INHALATION Q6H PRN 05/13/22 05/13/22 History inhaler amitriptyline 50 mg tablet 100 mg PO HS PRN 05/13/22 05/13/22 History amlodipine 5 mg tablet 5 mg PO DAILY 05/13/22 05/13/22 History cholecalciferol (vitamin D3) 125 125 mcg PO DAILY 05/13/22 05/13/22 History mcg (5,000 unit) capsule docusate sodium 100 mg capsule 100 mg PO BID PRN 05/13/22 05/13/22 History folic acid 1 mg tablet 1 mg PO DAILY 05/13/22 05/13/22 History Patient History Medical History (Updated 05/13/22 @ 13:56 by Suki Lopez PA-C) Arthritis NECK, LIMITED ROM SIDE TO SIDE MOVEMENT CKD (chronic kidney disease), stage III Dementia Diabetes mellitus, type II, insulin dependent HLD (hyperlipidemia) HTN (hypertension) Poor historian Surgical History History of colonoscopy History of colonoscopy with polypectomy History of right cataract surgery History of surgery L HEEL , SPLINTER REMOVED Family History Other Heart disease Social History Smoking Status: Never smoker Second Hand Exposure: No; Hx Alcohol Use: Yes Hx Substance Use: No Preferred Language: Citizen Of [place] Communication Ability: Effective Top Precipitator Operator Required: No Beliefs That Will Affect Care: None Current Living Situation: Alone Other Information That Helps Us Care for You: No Feels Safe at Home: Yes Safety Concerns: Feels Safe At This Time Assistive Devices: Glasses Physical Exam Constitutional: WD/WN, vitals as above (chronically ill) Eyes: PERRL, conjunctivae normal, anicteric sclerae ENMT: external ear and nose normal, oropharynx normal Respiratory: normal respiratory effort, lungs clear to auscultation Cardiovascular: RRR, no murmur, no edema Gastrointestinal (Abdomen): BS x 4 quadrants, TTP LLQ moderate, no rebound, guarding, distention, abd soft. Skin: no rashes, warm and dry Psychiatric: A+Ox3, euthymic affect (but no clear on certain details of his history) Results & Data ([facility]) Vital Signs (Past 12 Hours) Vital Signs Temp Pulse Pulse Resp BP BP Pulse Ox 05/13/22 13:43 36.4 C L 59 L 18 131/71 96 07/01/22 12:45 60 11 L 05/13/22 12:30 66 15 139/88 94 05/13/22 12:15 69 14 89 L 05/13/22 12:10 63 13 05/13/22 12:03 99 05/13/22 11:56 97 05/13/22 11:40 58 L 10 L 97 05/13/22 11:30 59 L 11 L 151/83 H 94 05/13/22 11:20 63 13 98 05/13/22 11:15 59 L 10 L 99 05/13/22 11:00 0 L 128/82 97 05/13/22 10:45 96 05/13/22 10:41 95 05/13/22 10:23 60 16 117/68 97 05/13/22 10:22 64 18 117/68 99 05/13/22 10:20 58 L 0 L 116/67 95 05/13/22 10:15 58 L 18 05/13/22 10:10 73 18 05/13/22 10:00 129/72 05/13/22 09:59 57 L 4 L 99 05/13/22 09:49 54 L 14 106/68 98 05/13/22 09:45 56 L 16 97 05/13/22 09:30 54 L 10 L 115/63 95 05/13/22 09:18 36.5 C 54 L 20 104/64 93 05/13/22 09:15 56 L 16 96 05/13/22 09:13 54 L 16 104/64 97 Laboratory Results 05/13/22 05/13/22 05/13/22 Range/Units 14:03 11:49 11:49 WBC (4.8-10.8) K/uL RBC (4.7-6.1) M/uL Hgb (14.0-18.0) g/dL POC Hgb (14.0-18.0) g/dl Hct (42-52) % POC Hct (42-52) % MCV (80-100) fL MCH (25-34) pg MCHC (32-36) g/dL RDW Std Deviation (36.4-46.3) fL RDW Coeff of Gabriella (11.5-14.5) % Plt Count (130-400) K/uL MPV (7.4-10.4) fL Immature Gran % (Auto) % Neut % (Auto) % Lymph % (Auto) % [place] % (Auto) % Eos % (Auto) % Baso % (Auto) % Neut # (Auto) (1.4-6.5) K/uL Lymph # (Auto) (1.2-3.4) K/uL [place] # (Auto) (0.11-0.59) K/uL Eos # (Auto) (0-0.5) K/uL Baso # (Auto) (0-0.2) K/uL Immature Gran # (Auto) (0.00-0.02) K/uL POC Sodium (135-144) mmol/L Sodium (136-145) mmol/L POC Potassium (3.3-5.0) mmol/L Potassium (3.5-5.1) mmol/L POC Chloride (101-112) mmol/L Chloride (98-107) mmol/L Carbon Dioxide (21-32) mmol/L POC Total CO2 (24-31) mmol/L Anion Gap (3-11) POC Anion Gap (16-25) mmol/L POC BUN (7-18) mg/dl BUN (6-23) mg/dl Creatinine (0.6-1.4) mg/dl POC Creatinine (0.6-1.3) mg/dl Est Cr Clr Drug Dosing ml/min Est GFR ( Amer) ml/min Est GFR (Non-Af Amer) ml/min BUN/Creatinine Ratio (10-20) Glucose (70-99(Fasting)) mg/dl POC Glucose 75 (70-99) mg/dl POC Glucose (other) (70-99) mg/dl Lactate 1.4 (0.4-2.0) mmol/L Calcium (8.5-10.1) mg/dl POC Ioniz Calcium Jessica (1.12-1.32) mmol/l Magnesium (1.7-2.4) mg/dl Total Bilirubin (0.2-1.0) mg/dl AST (13-39) U/L ALT (7-52) U/L Alkaline Phosphatase (34-104) U/L Troponin I High Sens (0-20) pg/ml Total Protein (6.0-8.3) gm/dl Albumin (3.4-5.0) gm/dl Globulin (2.5-4.0) gm/dl Albumin/Globulin Ratio (0.9-2) TSH (0.300-4.500) uIu/ml Free T4 (0.61-1.60) ng/dl SARS-CoV-2, RNA, NAAT NEGATIVE (NEGATIVE) 05/13/22 05/13/22 05/13/22 Range/Units 09:26 09:18 09:18 WBC (4.8-10.8) K/uL RBC (4.7-6.1) M/uL Hgb (14.0-18.0) g/dL POC Hgb 9.2 L (14.0-18.0) g/dl Hct (42-52) % POC Hct 27 L (42-52) % MCV (80-100) fL MCH (25-34) pg MCHC (32-36) g/dL RDW Std Deviation (36.4-46.3) fL RDW Coeff of Gabriella (11.5-14.5) % Plt Count (130-400) K/uL MPV (7.4-10.4) fL Immature Gran % (Auto) % Neut % (Auto) % Lymph % (Auto) % [place] % (Auto) % Eos % (Auto) % Baso % (Auto) % Neut # (Auto) (1.4-6.5) K/uL Lymph # (Auto) (1.2-3.4) K/uL [place] # (Auto) (0.11-0.59) K/uL Eos # (Auto) (0-0.5) K/uL Baso # (Auto) (0-0.2) K/uL Immature Gran # (Auto) (0.00-0.02) K/uL POC Sodium 142 (135-144) mmol/L Sodium 140 (136-145) mmol/L POC Potassium 4.0 (3.3-5.0) mmol/L Potassium 4.0 (3.5-5.1) mmol/L POC Chloride 105 (101-112) mmol/L Chloride 108 H (98-107) mmol/L Carbon Dioxide 27 (21-32) mmol/L POC Total CO2 25 (24-31) mmol/L Anion Gap 5 (3-11) POC Anion Gap 17.0 (16-25) mmol/L POC BUN 24 H (7-18) mg/dl BUN 26 H (6-23) mg/dl Creatinine 1.57 H (0.6-1.4) mg/dl POC Creatinine 1.6 H (0.6-1.3) mg/dl Est Cr Clr Drug Dosing 43.9 ml/min Est GFR ( Amer) 48.9 ml/min Est GFR (Non-Af Amer) 42.2 ml/min BUN/Creatinine Ratio 16.6 (10-20) Glucose 114 H (70-99(Fasting)) mg/dl POC Glucose (70-99) mg/dl POC Glucose (other) 114 H (70-99) mg/dl Lactate (0.4-2.0) mmol/L Calcium 8.6 (8.5-10.1) mg/dl POC Ioniz Calcium Jessica 1.19 (1.12-1.32) mmol/l Magnesium 1.7 (1.7-2.4) mg/dl Total Bilirubin 1.0 (0.2-1.0) mg/dl AST 11 L (13-39) U/L ALT 16 (7-52) U/L Alkaline Phosphatase 92 (34-104) U/L Troponin I High Sens 4.5 (0-20) pg/ml Total Protein 6.0 (6.0-8.3) gm/dl Albumin 3.5 (3.4-5.0) gm/dl Globulin 2.5 (2.5-4.0) gm/dl Albumin/Globulin Ratio 1.4 (0.9-2) TSH 5.352 H (0.300-4.500) uIu/ml Free T4 0.74 (0.61-1.60) ng/dl SARS-CoV-2, RNA, NAAT (NEGATIVE) 05/13/22 Range/Units 09:18 WBC 6.28 (4.8-10.8) K/uL RBC 3.10 L (4.7-6.1) M/uL Hgb 10.0 L (14.0-18.0) g/dL POC Hgb (14.0-18.0) g/dl Hct 30.5 L (42-52) % POC Hct (42-52) % MCV 98.4 (80-100) fL MCH 32.3 (25-34) pg MCHC 32.8 (32-36) g/dL RDW Std Deviation 48.8 H (36.4-46.3) fL RDW Coeff of Gabriella 13.6 (11.5-14.5) % Plt Count 337 (130-400) K/uL MPV 10.0 (7.4-10.4) fL Immature Gran % (Auto) 0.2 % Neut % (Auto) 53.7 % Lymph % (Auto) 32.8 % [place] % (Auto) 8.4 % Eos % (Auto) 3.8 % Baso % (Auto) 1.1 % Neut # (Auto) 3.37 (1.4-6.5) K/uL Lymph # (Auto) 2.06 (1.2-3.4) K/uL [place] # (Auto) 0.53 (0.11-0.59) K/uL Eos # (Auto) 0.24 (0-0.5) K/uL Baso # (Auto) 0.07 (0-0.2) K/uL Immature Gran # (Auto) 0.01 (0.00-0.02) K/uL POC Sodium (135-144) mmol/L Sodium (136-145) mmol/L POC Potassium (3.3-5.0) mmol/L Potassium (3.5-5.1) mmol/L POC Chloride (101-112) mmol/L Chloride (98-107) mmol/L Carbon Dioxide (21-32) mmol/L POC Total CO2 (24-31) mmol/L Anion Gap (3-11) POC Anion Gap (16-25) mmol/L POC BUN (7-18) mg/dl BUN (6-23) mg/dl Creatinine (0.6-1.4) mg/dl POC Creatinine (0.6-1.3) mg/dl Est Cr Clr Drug Dosing ml/min Est GFR ( Amer) ml/min Est GFR (Non-Af Amer) ml/min BUN/Creatinine Ratio (10-20) Glucose (70-99(Fasting)) mg/dl POC Glucose (70-99) mg/dl POC Glucose (other) (70-99) mg/dl Lactate (0.4-2.0) mmol/L Calcium (8.5-10.1) mg/dl POC Ioniz Calcium Jessica (1.12-1.32) mmol/l Magnesium (1.7-2.4) mg/dl Total Bilirubin (0.2-1.0) mg/dl AST (13-39) U/L ALT (7-52) U/L Alkaline Phosphatase (34-104) U/L Troponin I High Sens (0-20) pg/ml Total Protein (6.0-8.3) gm/dl Albumin (3.4-5.0) gm/dl Globulin (2.5-4.0) gm/dl Albumin/Globulin Ratio (0.9-2) TSH (0.300-4.500) uIu/ml Free T4 (0.61-1.60) ng/dl SARS-CoV-2, RNA, NAAT (NEGATIVE) Diagnostic Findings CTAP: COMPARISON: None available at the time of this dictation. FINDINGS: Lower chest: No acute abnormality Liver: Unremarkable. No focal lesions are seen. Gallbladder and biliary tree: Cholelithiasis is seen without evidence of cholecystitis. No intra- or extrahepatic biliary ductal dilation. Pancreas: Unremarkable, no focal lesions. Spleen: Unremarkable. Adrenals: Unremarkable. Kidneys and ureters: Perinephric stranding is noted bilaterally. Bladder: Unremarkable. Reproductive organs: Unremarkable. Bowel: Since of diverticula are seen. There is bowel wall thickening and vascular prominence in the sigmoid colon with a tiny amount of surrounding fat stranding. No perforation or abscess is seen. Lymph nodes Retroperitoneal: Unremarkable. Mesenteric: Unremarkable. Pelvic: Unremarkable. Peritoneum: Minimal fat stranding is seen about the sigmoid colon. Vessels: Atherosclerotic calcifications are seen. Abdominal wall: Bilateral fat-containing inguinal hernias are seen. Bones: Degenerative changes in the visualized spine. IMPRESSION: Findings are compatible with acute diverticulitis without evidence of perforation or abscess. CXR: Stable cardiomegaly without acute abnormality. Head CT: IMPRESSION: There is no hemorrhage, mass effect, or evidence of acute territorial ischemia by CT criteria.
--- NOTE | 2022-05-13 15:07 | Pharmacy Report ---
Pharmacy Glycemic Short Note 2 - Date of Service May 13, 2022 - Glycemic Short BSG Results (Last 24 hours): 05/13/22 05/13/22 05/13/22 09:18 09:26 14:03 Glucose 114 H POC Glucose 75 POC Glucose (other) 114 H OUTPATIENT ANTIDIABETIC REGIMEN: * Lantus 25 units BID * Novolog 12 units BIDM * HbA1c ordered for 05/14/22 ASSESSMENT: * 77 yo M with T2DM and unknown outpatient control admitted 05/13 for diver ticulitis. Recent BSG's have been low per patient/H&P * Inpatient BSG's in or below goal range thus far, at 114 and 75 mg/dL * Outpatient regimen heavily weighted towards basal - will reduce basal and distribute more evenly as an inpatient * Novolog weight-based moderate stress estimate PLAN FOR INPATIENT GLYCEMIC CONTROL: * Basal insulin * Lantus 10-20 units SQ BID * Bolus insulin * NovoLog per scale ACHS or Q6hrs while NPO * Goal Range: Low 110 mg/dL - High 140 mg/dL * Correction Factor: 25 mg/dL/unit * Nutritional / Prandial insulin per carb ratio of 1 unit per 9 grams CHO consumed
[2022-05-13] MEDS: CIPROFLOXACIN / D5W 400 MG/200 ML BAG IV SCH (16:43)
[2022-05-13] MEDS: INSULIN ASPART PER UNIT SC SCH ×2 (17:36→21:13)
[2022-05-13] MEDS: metroNIDAZOLE 500 MG/100 ML BAG IV SCH (18:28)
[2022-05-13] MEDS: ATORVASTATIN 40 MG TAB PO SCH (21:04)
[2022-05-13] MEDS: LANTUS PER UNIT CHARGE SQ SCH (21:12)
[2022-05-13 22:57] LABS: Appearance Urine Clear (Clear); Bilirubin Urine Negative (Negative); Blood Urine Negative (Negative); Color Urine Yellow; Glucose Urine UA Negative (Negative); Ketones Urine Negative (Negative); Leukocyte Esterase Urine Negative (Negative); Nitrite Urine Negative (Negative); Protein Urine Negative (Negative); Specific Gravity Urine 1.009 (1.000-1.030); Urobilinogen Urine Negative (Negative); pH Urine 7.5 (4.5-7.5)
[2022-05-14] MEDS: metroNIDAZOLE 500 MG/100 ML BAG IV SCH ×3 (01:33→17:32)
[2022-05-14] MEDS: AMITRIPTYLINE HCL 100 MG TAB PO PRN ×2 (01:58→20:44)
[2022-05-14] MEDS: CIPROFLOXACIN / D5W 400 MG/200 ML BAG IV SCH ×2 (03:46→15:32)
[2022-05-14] MEDS: HEPARIN SOD 5,000 UNIT/0.5 ML VIAL SQ SCH ×3 (06:25→20:44)
[2022-05-14 07:42] LABS: Estimated Average Glucose 240 mg/dl
[2022-05-14 07:43] LABS: BUN Creatinine Ratio 16.5 (10-20); Calcium 8.2 mg/dl (8.5-10.1); Creatinine Clr Calc Pharmacy 43.7 ml/min; Est GFR (African American) 48.5 ml/min; Est GFR (Non-African American) 41.9 ml/min; Potassium 4.5 mmol/L (3.5-5.1)
[2022-05-14 07:49] LABS: Hematocrit (blood only) 31.1 % (42-52); Hemoglobin 10.1 g/dL (14.0-18.0); Mean Corpuscular Hemoglobin 32.4 pg (25-34); Mean Corpuscular Hgb Conc 32.5 g/dL (32-36); Mean Corpuscular Volume 99.7 fL (80-100); Mean Platelet Volume 9.9 fL (7.4-10.4); Platelet Count 326 K/uL (130-400); RDW Coefficient of Variation 13.2 % (11.5-14.5); RDW Standard Deviation 47.8 fL (36.4-46.3); Red Blood Count 3.12 M/uL (4.7-6.1); White Blood Count 5.91 K/uL (4.8-10.8)
[2022-05-14] MEDS: LANTUS PER UNIT CHARGE SQ SCH (08:36)
[2022-05-14] MEDS: INSULIN ASPART PER UNIT SC SCH ×4 (08:37→21:34)
[2022-05-14] MEDS: amLODIPine BESYLATE 5 MG TAB PO SCH (08:43)
[2022-05-14] MEDS: OMEGA-3 (PURIFIED FISH OIL) 1 GM CAP PO SCH (08:44)
[2022-05-14] MEDS: DONEPEZIL HCL 10 MG TAB PO SCH (08:44)
[2022-05-14] MEDS: ASPIRIN 81 MG ECTAB PO SCH (08:44)
[2022-05-14] MEDS: CHOLECALCIFEROL 5,000 UNITS 125 MCG TAB PO SCH (08:44)
[2022-05-14] MEDS: GABAPENTIN 300 MG CAP PO SCH ×3 (08:45→20:44)
[2022-05-14] MEDS: LOSARTAN POTASSIUM 50 MG TAB PO SCH (08:45)
[2022-05-14] MEDS: FOLIC ACID 1 MG TAB PO SCH (08:45)
[2022-05-14] MEDS ORDERED: bisacodyL 5 MG TABEC PO ONE (13:38)
[2022-05-14] MEDS: ATORVASTATIN 40 MG TAB PO SCH (20:43)
[2022-05-14] MEDS ORDERED: LANTUS PER UNIT CHARGE SQ SCH (21:00)
--- NOTE | 2022-05-14 23:57 | Hospitalist Progress Note ---
Date of Service May 14, 2022 Assessment & Plan (1) Acute hypotension: (2) Dizziness: Plan: This is a 77yo M with a PMH of DM II, HTN, HLD, CKD III, dementia and other medical problems listed below who presents with transient lightheadedness and lower abdominal pain and was found to have acute diverticulitis. Sent from [place] office with hypotension and dizziness that have since resolved with IV fluids CT head showed no acute intracranial abnormality Currently denies any symptoms Clinically improved significantly (3) Acute diverticulitis of intestine: Plan: Intermittent mild lower abdominal pain on admission CT abd/pelvis with acute diverticulitis without evidence of perforation or abscess GI on board Diet advance to low fiber and tolerated Ultimately switch to high-fiber to avoid constipation Continue Cipro and Flagyl Patient had a colonoscopy scheduled for May, discussed with patient to notify provider to to schedule colonoscopy in 6 to 8 weeks due to risk of perforation Patient said they already contacted him and reschedule the scope Medically improved significantly (4) Diabetes mellitus, type II, insulin dependent: Plan: Recent hemoglobin A1c 10 (05/14/22) Pharmacy on board for glycemic management Continue NovoLog lantus Continue monitor blood sugar (5) CKD (chronic kidney disease), stage III: Plan: Per outpatient labwork, baseline Cr ~1.7. Creatinine on admission 1.5 Continue monitor nephrotoxic agent Stable (6) HTN (hypertension): Plan: BP stable Continue amlodipine, losartan (7) Dementia: Plan: A&O to person and place on admission. Continue donepezil. Case mgmt help appreciated since patient lives alone, is in process of moving apartments (8) HLD (hyperlipidemia): Plan: Continue statin Constipation He has not had a bowel movement in the last 2 to 3 days Continue stool softener and laxative DVT Ppx: SQ heparin Code status: FULL Disposition Plan to discharge home tomorrow Admission and Anticipated Discharge Date Admission Date: May 13, 2022 Subjective Patient was seen and examined for follow-up of diverticulitis Lying in bed with no acute distress Patient said that he is not having any pain He tolerated his diet He said he has not had a bowel movement in the last 2 to 3 days Denies any chest pain, palpitation, dizziness, shortness of breath. Review of Systems Review of Systems: All systems reviewed & are unremarkable except as noted in Subjective Physical Exam Physical Exam: General- No acute distress Head- atraumatic Eyes- PERRL, EOMI, ENT- oropharynx clear Neck- supple, no JVD Lungs- clear to auscultation Heart- regular rhythm; no murmur Abdomen- normal bowel sounds, soft, nontender Extremities- no calf tenderness Neuro- alert, oriented x 3; PERRL, EOMI; no facial palsy; no dysarthria Skin- warm & dry Results & Data Results & Data ([facility]) Vital Signs (Past 12 Hours) Vital Signs Temp Pulse Resp BP Pulse Ox 05/14/22 21:25 37.4 C 57 L 18 146/69 H 97 05/14/22 16:10 36.6 C 52 L 18 134/62 98
[2022-05-15] MEDS ORDERED: INSULIN ASPART PER UNIT SC SCH
[2022-05-15] MEDS: metroNIDAZOLE 500 MG/100 ML BAG IV SCH ×2 (02:45→09:03)
[2022-05-15] MEDS: CIPROFLOXACIN / D5W 400 MG/200 ML BAG IV SCH (03:41)
[2022-05-15 04:37] LABS: A calco-baum cmplx NotReported Not Detected (NotDetected); Bact fragilis Not Reported Not Detected (NotDetected); C auris Not Reported Not Detected (NotDetected); Calbicans Not Reported Not Detected (NotDetected); Candida glabrata Not Reported Not Detected (NotDetected); Candida krusei Not Reported Not Detected (NotDetected); Cneoformans/gatti Not Reported Not Detected (NotDetected); Cparapsilosis Not Reported Not Detected (NotDetected); Ctropicalis Not Reported Not Detected (NotDetected); E cloacae compx Not Reported Not Detected (NotDetected); Efaecalis Not Reported Not Detected (NotDetected); Efaecium Not Reported Not Detected (NotDetected); Enterobacterales Not Reported Not Detected (NotDetected); Escherichia coli Not Reported Not Detected (NotDetected); H influenzae Not Reported Not Detected (NotDetected); K aerogenes Not Reported Not Detected (NotDetected); Koxytoca Not Reported Not Detected (NotDetected); Kpneumoniae grp Not Reported Not Detected (NotDetected); Lmonocyt Not Reported Not Detected (NotDetected); N meningitidis Not Reported Not Detected (NotDetected); P aeruginosa Not Reported Not Detected (NotDetected); Proteus spp Not Reported Not Detected (NotDetected); Salmonella spp Not Reported Not Detected (NotDetected); Smarcescens Not Reported Not Detected (NotDetected); Staph lugdunensis Not Reported Not Detected (NotDetected); Staph spp. Not Reported DETECTED (NotDetected); Staphaureus Not Reported Not Detected (NotDetected); Staphepi Not Reported DETECTED (NotDetected); Staphylococcus epidermidis DETECTED (NotDetected); Staphylococcus spp. DETECTED (NotDetected); Stenmaltophilia Not Reported Not Detected (NotDetected); Strep agal(GrpB) Not Reported Not Detected (NotDetected); Strep pneum Not Reported Not Detected (NotDetected); Strep pyog (GrpA) Not Reported Not Detected (NotDetected); Strep spp Not Reported Not Detected (NotDetected); mecAC Resistant Gene Not Detected (NotDetected)
[2022-05-15] MEDS: HEPARIN SOD 5,000 UNIT/0.5 ML VIAL SQ SCH (05:57)
[2022-05-15 08:00] LABS: Hematocrit (blood only) 34.6 % (42-52); Hemoglobin 11.4 g/dL (14.0-18.0); Mean Corpuscular Hemoglobin 32.2 pg (25-34); Mean Corpuscular Hgb Conc 32.9 g/dL (32-36); Mean Corpuscular Volume 97.7 fL (80-100); Mean Platelet Volume 9.9 fL (7.4-10.4); Platelet Count 360 K/uL (130-400); RDW Coefficient of Variation 13.4 % (11.5-14.5); RDW Standard Deviation 47.7 fL (36.4-46.3); Red Blood Count 3.54 M/uL (4.7-6.1); White Blood Count 6.06 K/uL (4.8-10.8)
[2022-05-15] MEDS: CHOLECALCIFEROL 5,000 UNITS 125 MCG TAB PO SCH (08:15)
[2022-05-15] MEDS: OMEGA-3 (PURIFIED FISH OIL) 1 GM CAP PO SCH (08:16)
[2022-05-15] MEDS: amLODIPine BESYLATE 5 MG TAB PO SCH (08:16)
[2022-05-15] MEDS: DONEPEZIL HCL 10 MG TAB PO SCH (08:16)
[2022-05-15] MEDS: ASPIRIN 81 MG ECTAB PO SCH (08:16)
[2022-05-15 08:17] LABS: BUN Creatinine Ratio 16.5 (10-20); Calcium 9.2 mg/dl (8.5-10.1); Creatinine Clr Calc Pharmacy 40.6 ml/min; Est GFR (African American) 44.4 ml/min; Est GFR (Non-African American) 38.3 ml/min; Potassium 4.2 mmol/L (3.5-5.1)
[2022-05-15] MEDS: LOSARTAN POTASSIUM 50 MG TAB PO SCH (08:17)
[2022-05-15] MEDS: GABAPENTIN 300 MG CAP PO SCH (08:17)
[2022-05-15] MEDS: FOLIC ACID 1 MG TAB PO SCH (08:17)
[2022-05-15] MEDS: INSULIN ASPART PER UNIT SC SCH (08:24)
--- NOTE | 2022-05-15 08:39 | Pharmacy Report ---
Pharmacy Glycemic Short Note 2 - Date of Service May 15, 2022 - Glycemic Short BSG Results (Last 24 hours): 05/14/22 05/14/22 05/14/22 12:25 17:08 20:44 Glucose POC Glucose 173 H 148 H 115 H 05/15/22 05/15/22 05/15/22 00:17 07:33 08:09 Glucose 164 H POC Glucose 120 H 163 H OUTPATIENT ANTIDIABETIC REGIMEN: * Lantus 25 units BID * Novolog 12 units BIDM * HbA1c ordered for 05/14/22 ASSESSMENT: 05/15 * Patient received total of 52 units of insulin yesterday, of which 25 units were basal * Fasting BSG 163 mg/dL - will continue with 25 units daily of basal * BSGs trending down yesterday, may loosen CF/CR slightly this AM 05/13 * 77 yo M with T2DM and unknown outpatient control admitted 05/13 for diverticulitis. Recent BSG's have been low per patient/H&P * Inpatient BSG's in or below goal range thus far, at 114 and 75 mg/dL * Outpatient regimen heavily weighted towards basal - will reduce basal and distribute more evenly as an inpatient * Novolog weight-based moderate stress estimate PLAN FOR INPATIENT GLYCEMIC CONTROL: * Basal insulin * Lantus 20-25 units daily based upon BSG (>160 - 25 units) * Bolus insulin * NovoLog per scale ACHS or Q6hrs while NPO * Goal Range: Low 110 mg/dL - High 140 mg/dL * Correction Factor: 25 mg/dL/unit * Nutritional / Prandial insulin per carb ratio of 1 unit per 9 grams CHO consumed
[2022-05-15 08:51] LABS: Adenovirus F 40/41 PCR Not Detected (NotDetected); Astrovirus PCR Not Detected (NotDetected); Campylobacter PCR Not Detected (NotDetected); Clostridium diff Toxin A/B PCR Not Detected (NotDetected); Cryptosporidium PCR Not Detected (NotDetected); Cyclospora cayetanensis PCR Not Detected (NotDetected); Entamoeba histolytica PCR Not Detected (NotDetected); Enteroaggregative E.coli(EAEC) Not Detected (NotDetected); Enteropathogenic E.coli (EPEC) Not Detected (NotDetected); Enterotoxigenic E.coli (ETEC) Not Detected (NotDetected); Giardia lamblia PCR Not Detected (NotDetected); Norovirus GI/GII PCR Not Detected (NotDetected); Plesiomonas shigelloides PCR Not Detected (NotDetected); Rotavirus A PCR Not Detected (NotDetected); Salmonella PCR Not Detected (NotDetected); Sapovirus PCR Not Detected (NotDetected); Shiga-like Toxin E.coli (STEC) Not Detected (NotDetected); Shigella/Enteroinvasive E.coli Not Detected (NotDetected); Vibrio cholerae PCR Not Detected (NotDetected); Vibrio species PCR Not Detected (NotDetected); Yersinia enterocolitica PCR Not Detected (NotDetected)
[2022-05-15] MEDS ORDERED: LANTUS PER UNIT CHARGE SQ SCH ×2 (09:00)
--- NOTE | 2022-05-15 11:08 | Discharge Summary ---
Date of Service May 15, 2022 Admission HPI Per Admitting Provider This is a 77yo M with a PMH of DM II, HTN, HLD, CKD III, dementia and other medical problems listed below who presents with transient lightheadedness and lower abdominal pain. Patient was at a preop appointment for colonoscopy at [facility] in [place] when he was noted to be lightheaded and more confused than baseline with a reported systolic blood pressure in the 60s. Was sent to ED for further evaluation, where he was noted to have improved BP of 104/64. Dizziness and confusion have improved since arrival and IV fluids. Does note intermittent lower abdominal pain that is mild in nature and described as cramping. Did have some loose stool with colonoscopy prep, per patient although he is a poor historian. No longer constipated. Denies any fever, chills, headache, chest pain, shortness of breath, nausea, vomiting, dysuria, blood in stool. No focal weakness. Patient lives alone and is in the process of moving from 1 apartment to another. Currently has most of belongings including medications and car. Has mild dementia but is currently alert and oriented to person and place. Discharge Exam General- No acute distress Head- atraumatic Eyes- PERRL, EOMI, ENT- oropharynx clear Neck- supple, no JVD Lungs- clear to auscultation Heart- regular rhythm; no murmur Abdomen- normal bowel sounds, soft, nontender Extremities- no calf tenderness Neuro- alert, oriented x 3; PERRL, EOMI; no facial palsy; no dysarthria Skin- warm & dry Discharge Data Allergies Allergy/AdvReac Type Severity Reaction Status Date / Time No Known Drug Allergies Allergy Unknown Verified 01/07/20 14:34 Consultations 05/13/22 11:57 ED Decision to Admit Stat 05/13/22 14:11 Consult Gastroenterology Routine Ordered Studies 05/13/22 09:53 CT head/brain wo con Stat 05/13/22 10:09 CT abd pelvis wo con Stat Diabetes Follow up Diabetes Follow-up Needed for HgbA1c >9% Hospital Course (1) Acute hypotension: (2) Dizziness: This is a 77yo M with a PMH of DM II, HTN, HLD, CKD III, dementia and other medical problems listed below who presents with transient lightheadedness and lower abdominal pain and was found to have acute diverticulitis. Sent from [facility] with hypotension and dizziness that have since resolved with IV fluids CT head showed no acute intracranial abnormality Currently denies any symptoms Clinically improved significantly (3) Acute diverticulitis of intestine: Intermittent mild lower abdominal pain on admission CT abd/pelvis with acute diverticulitis without evidence of perforation or abscess GI on board Diet advance to low fiber and tolerated Ultimately switch to high-fiber to avoid constipation Continue Cipro and Flagyl Patient had a colonoscopy scheduled for May, discussed with patient to notify provider to to schedule colonoscopy in 6 to 8 weeks due to risk of perforation Patient said they already contacted him and reschedule the scope Medically improved significantly (4) Diabetes mellitus, type II, insulin dependent: Recent hemoglobin A1c 10 (05/14/22) Pharmacy on board for glycemic management Continue NovoLog lantus Continue monitor blood sugar (5) CKD (chronic kidney disease), stage III: Per outpatient labwork, baseline Cr ~1.7. Creatinine on admission 1.5 Continue monitor nephrotoxic agent Stable (6) HTN (hypertension): BP stable Continue amlodipine, losartan (7) Dementia: A&O to person and place on admission. Continue donepezil. Case mgmt help appreciated since patient lives alone, is in process of moving apartments (8) HLD (hyperlipidemia): Continue statin Constipation He has not had a bowel movement in the last 2 to 3 days Continue stool softener and laxative DVT Ppx: SQ heparin Code status: FULL Disposition Plan to discharge home tomorrow Discharge Plan Discharge Items Patient Disposition: Home - Self-Care Reason For Visit: ACUTE DIVERTICULITIS Discharge Diagnosis: (1) Acute hypotension: (2) Dizziness: (3) Acute diverticulitis of intestine: (4) Diabetes mellitus, type II, insulin dependent: (5) CKD (chronic kidney disease), stage III: Activity: Resume your previous activity Non-emergency contact: Primary Care Provider Call non-emergency contact if: you have any medication questions and your temperature is above 101 Follow-up/Referrals: PCP,NO [Primary Care Provider] - Diet: Carb Consistent or DM2 and Low Fiber Addtl Attending Provider Instructions: Follow up with your primary care provider at the [facility] Follow up with gastroenterology to arrange for colonoscopy in 6 to 8 weeks Complete the course of the antibiotic with Cipro and flagyl Fall precaution Follow a health diabetic diet and limited concentrated sweet intake Continue monitor your blood sugar and bring your blood sugar log at your next appointment with your provider Seek medical attention if you develop any abdominal symptoms or fever Fall precaution Lantus 25 units changed to once a day Novolog changed to 10 units three times a day with meals Please continue to monitor your blood sugar closely Notify your provider if blood sugar elevates in the 180 that they can adjust your insulin Pending Studies at Discharge: No Stand-Alone Forms: My [facility], Smoking Cessation Medications and DC Order Prescriptions: New metronidazole 500 mg tablet 500 mg PO Q8H 5 Days Qty: 15 RF: 0 ciprofloxacin HCl [Cipro] 500 mg tablet 500 mg PO Q12H 5 Days Qty: 10 RF: 0 Continued atorvastatin 80 mg Tablet 80 mg PO HS RF: 0 aspirin [Aspir-81] 81 mg Tablet,Delayed Release (Dr/Ec) 81 mg PO QAM RF: 0 losartan 100 mg Tablet 100 mg PO QAM RF: 0 Crescent-3 350 mg-235 mg- 90 mg-597 mg Capsule,Delayed Release(Dr/Ec) 2 cap PO QAM RF: 0 donepezil 5 mg Tablet 10 mg PO QAM RF: 0 gabapentin 300 mg Capsule 600 mg PO TID RF: 0 amlodipine 5 mg Tablet 5 mg PO DAILY RF: 0 amitriptyline 50 mg Tablet 100 mg PO HS PRN (Reason: neuropathy) RF: 0 docusate sodium 100 mg Capsule 100 mg PO BID PRN (Reason: Constipation) RF: 0 albuterol 90 mcg/actuation Aerosol 90 mcg INHALATION Q6H PRN (Reason: Shortness Of Breath Or Wheezing) RF: 0 folic acid 1 mg Tablet 1 mg PO DAILY RF: 0 cholecalciferol (vitamin D3) 125 mcg (5,000 unit) Capsule 125 mcg PO DAILY RF: 0 Changed insulin aspart U-100 [Novolog U-100 Insulin aspart] 100 unit/mL Solution 10 unit SUBCUT TID Qty: 0 RF: 0 insulin glargine [Lantus Solostar U-100 Insulin] 100 unit/mL (3 mL) Insulin Pen 25 unit SUBCUT DAILY Qty: 0 RF: 0 Discharge Orders: Discharge Order (Routine); Ordered 05/15/22 Ordered By: Elen Lange/Other Patient Handouts: Diverticulosis and Diverticulitis, Diverticulitis Dc, Understanding Type 2 Diabetes, Insulin Shot Steps Admission Data Admit Date/Time: 05/13/22 12:37 Attending Provider: Elen Miramontes Admit Provider: Naima Almaguer I. Primary Care Provider: PCP,MARIAH Other Providers: Naima Almaguer I. ; Taz Hughes ; [facility] Other Interventions: Discharge Summary Assessment (RN) Last Done: 05/15/22 09:11
== END 2022-05-15 11:30 | disposition home or self-care (01) | DRG 392 ==
LOC: ED 09:06 → 3W 12:37 → SUATTDRO 12:37 → 3W 13:36